=== PATIENT | male | born 1975 | race Two or more races ===

== ENCOUNTER 2021-01-03 20:47 | Observation (INO) | payer SELFPAY ==
[~2021-01-03] VITALS: Ht 167.6 cm; Wt 86.3 kg
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
[2021-01-04] MEDS ORDERED: ONDANSETRON PF 4 MG/2 ML VIAL. IVP ONE (05:00)
[2021-01-04] MEDS ORDERED: KETOROLAC 15 MG/ML VIAL. IVP ONE (05:00)
[2021-01-04] MEDS ORDERED: IV NORMAL SALINE 1000ML BAG 1,000 ML IV ONE ×2 (05:00→07:15)
[2021-01-04 06:20] LABS: BASO % 0 % (0-3); EOS % 0 % (0-3); HEMOGLOBIN 15.4 g/dL (13.0-17.5); LYMPH % 9 % (24-48); MEAN CORPUSCULAR HEMOGLOBIN 31 pg (25-35); MEAN CORPUSCULAR HGB CONC 35 g/dL (31-37); MEAN CORPUSCULAR VOLUME 89 fL (79-100); MONO # 1.3 x10^3/uL (0.0-1.1); MONO % 12 % (0-9); NEUT # 9.1 x10^3/uL (1.8-7.7); NEUT % 80 % (31-73); PLATELET COUNT 148 x10^3/uL (140-400); RED BLOOD COUNT 4.94 x10^6/uL (4.30-5.70); RED CELL DISTRIBUTION WIDTH 13.9 % (11.5-14.5); WHITE BLOOD COUNT 11.5 x10^3/uL (4.0-11.0)
[2021-01-04 06:26] LABS: CLARITY,URINE CLEAR; COLOR,URINE ORANGE; PH,URINE 5.5 (<5.0-8.0); PROTEIN,URINE 100 mg/dL (NEG-TRACE)
[2021-01-04 06:35] LABS: CALCIUM 9.2 mg/dL (8.5-10.1); CREATININE 1.5 mg/dL (0.7-1.3); GFR 50.6; POTASSIUM 3.4 mmol/L (3.5-5.1)
[2021-01-04 06:36] LABS: ACETAMIN < 2 mcg/ml (10-30); ETHANOL < 10 mg/dL (0-10); HYALINE CASTS, URINE MANY /HPF; SALIC < 2.8 mg/dL (2.8-20.0)
[2021-01-04 06:38] LABS: BACTERIA,URINE FEW /HPF (0-FEW)
[2021-01-04 06:45] LABS: BARBITURATES NEG (NEG); BENZODIAZEPINES NEG (NEG); CANNABINOIDS NEG (NEG); COCAINE NEG (NEG); METHADONE NEG (NEG); OPIATES NEG (NEG); PHENCYCLIDINE NEG (NEG)
[2021-01-04 06:46] LABS: AMPHETAMINE/METHAMPHETAMINE NEG (NEG)
--- NOTE | 2021-01-04 06:52 | EKG ---
[facility] [address] [place] [address] Test Date: 2021-01-04 Test Time: 06:21:25 Pat Name: EMANI MALONE Department: Room: Gender: M Computer Hardware Engineer: : 1975 Requested By: RAFY JOAQUIN Order Number: [id number] Reading MD: Measurements Intervals [place] Rate: 109 P: 249 CA: 126 QRS: 37 QRSD: 86 T: 43 QT: 354 QTc: 478 Interpretive Statements SINUS TACHYCARDIA OTHERWISE NORMAL ECG RI6.02 No previous ECG available for comparison
[2021-01-04 07:00] LABS: ALBUMIN 4.3 g/dL (3.4-5.0); ALBUMIN/GLOBULIN RATIO 1.2 (1.0-1.7); TOTAL PROTEIN 7.9 g/dL (6.4-8.2)
[2021-01-04] MEDS ORDERED: IOHEXOL 300 MG/ML 100ML VIAL. IV ONE (07:00)
[2021-01-04] MEDS ORDERED: CONTRAST GIVEN. MC PRN (07:00)
--- NOTE | 2021-01-04 07:32 | RAD ---
EXAM: CT ABDOMEN/PELVIS WITH CONTRAST. HISTORY: Abdominal pain. TECHNIQUE: Computed tomography of the abdomen and pelvis was performed after the intravenous administ ration of iodinated contrast. One or more of the following individualized dose reduction techniques w ere utilized for this examination: 1. Automated exposure control. 2. Adjustment of the mA and/or kV according to patient size. 3. Use of iterative reconstruction technique. COMPARISON: None. FINDINGS: Lung windows through the visualized portions of the bases reveal respiratory motion artifac t. There is wall thickening of the distal esophagus which contains fluid. Bone windows reveal no susp icious lesions. There are scattered benign bone islands in the pelvis. Hypoattenuation of the hepatic parenchyma indicates severe diffuse hepatic steatosis. Respiratory mot ion artifact limits sensitivity for small lesions in the upper abdomen. None are seen. The gallbladde r, pancreas, adrenal glands, spleen and kidneys are otherwise unremarkable. There are no pathologically enlarged lymph nodes. The right and transverse colon are decompressed but there is suggestion of wall thickening. There is no small bowel obstruction. The appendix is not inf lamed. IMPRESSION: 1. Severe diffuse hepatic steatosis. 2. Wall thickening of the distal esophagus suggests esophagitis. Electronically signed by: Karyn Rizo MD (01/04/2021 7:30 AM) [facility]
[2021-01-04] MEDS ORDERED: ONDANSETRON PF 4 MG/2 ML VIAL. IV PRN (07:45)
[2021-01-04] MEDS: IV NORMAL SALINE 1000ML BAG 1,000 ML IV SCH (13:15)
--- NOTE | 2021-01-04 14:16 | HP ---
ADMIT DATE: 01/04/2021 CHIEF COMPLAINT: Abdominal pain. HISTORY OF PRESENT ILLNESS: The patient is a pleasant 45-year-old male who uses cocaine, he states he last used about a week ago. He presents to the ER today with abdominal pain. States he has had some vomiting and diarrhea. He took some [id number] Tylenol but that did not help enough. States he also has some chronic back pain, so uses cocaine for that. While in the ER, we have noticed that his myoglobin was elevated to 948. He has rhabdomyolysis. He also has some electrolyte disturbances with sodium of 128 and potassium of 3.4. I discussed the case with ER physician. We are going to admit the patient. PAST MEDICAL HISTORY: Cocaine abuse, probable psychiatric issues? ALLERGIES: None. FAMILY HISTORY: Hypertension. SOCIAL HISTORY: He uses cocaine. MEDICATIONS: Reviewed, please refer to the MRAD. REVIEW OF SYSTEMS: GENERAL: No history of weight change, weakness or fevers. SKIN: No bruising, hair changes or rashes. EYES: No blurred, double or loss of vision. NOSE AND THROAT: No history of nosebleeds, hoarseness or sore throat. HEART: No history of palpitations, chest pain or shortness of breath on exertion. LUNGS: Denies cough, hemoptysis, wheezing or shortness of breath. GASTROINTESTINAL: Denies changes in appetite, nausea, or constipation. GENITOURINARY: No history of frequency, urgency, hesitancy or nocturia. NEUROLOGIC: Denies history of numbness, tingling, tremor or weakness. PSYCHIATRIC: No history of panic, anxiety or depression. ENDOCRINE: No history of heat or cold intolerance, polyuria or polydipsia. EXTREMITIES: Denies muscle weakness, joint pain, pain on walking or stiffness. PHYSICAL EXAMINATION: VITALS: Within normal limits and are stable. GENERAL: No apparent distress. Alert and oriented. HENT: Normal cephalic, atraumatic. External auditory canals are patent. EYES: Extraocular muscles are intact. Pupils are equally round and reactive to light and accommodation MUSCULOSKELETAL: Well developed, well nourished, good range of motion. ENDOCRINE: No thyromegaly was palpated. LYMPHATICS: No cervical chain or axillary nodes were noted. HEMATOPOIETIC: No bruising. NECK: Supple, no JVD, no thyromegaly was noted. LUNGS: Clear to auscultation in all lung arnold without rhonchi or wheezing. HEART: RRR, S1, S2 present. Peripheral pulses intact. No obvious murmurs were noted. ABDOMEN: Soft, nontender. Positive bowel sounds. No organomegaly. Normal bowel sounds. EXTREMITIES: Without any cyanosis, clubbing, or edema. Pedal pulses intact. Homans sign is negative. NEUROLOGIC: Normal speech, normal tone. A and O x 3, moves all extremities, no obvious focal deficits. PSYCHIATRIC: Normal affect, normal mood. Stable. SKIN: No ulcerations or rashes, good skin turgor, no jaundice. VASCULAR: Good capillary refill, neurovascular bundle appears to be intact. LABORATORY AND DIAGNOSTIC DATA: CT of the abdomen shows hepatic steatosis and wall thickening of the distal esophagus suggestive of esophagitis. Sodium is 128, potassium 3.4, chloride 85, bicarb 30, BUN 22, creatinine 1.5, glucose 97, AST and ALT are high at 187 and 76 respectively. Myoglobin 948. Troponin is 0. Drug screen negative. Urinalysis negative. ASSESSMENT AND PLAN: Rhabdomyolysis with electrolyte disturbance in a middle-aged male who uses cocaine and probable psychiatric issues. The patient has been admitted. We will give him IV fluids, trend his labs. Home meds. DVT prophylaxis. Full code. Consult social media sr strategy manager for drug rehab. PRN Zofran. PRN Ativan. JUAN/MILO DR: Page TID: [phone]
[2021-01-04 15:00] VITALS: BP 161/95
[2021-01-04 19:00] VITALS: BP 177/99
[2021-01-04] MEDS ORDERED: diphenhydrAMINE HCL 25 MG CAPSULE PO PRN (20:45)
[2021-01-04] MEDS ORDERED: ZOLPIDEM 5 MG TABLET. PO PRN (20:45)
[2021-01-04] MEDS ORDERED: ACETAMINOPHEN 325 MG TABLET. PO PRN (20:45)
[2021-01-04] MEDS ORDERED: DOCUSATE SODIUM 100 MG CAPSULE. PO PRN (20:45)
[2021-01-04 23:00] VITALS: BP 115/74
[2021-01-05] MEDS: IV NORMAL SALINE 1000ML BAG 1,000 ML IV SCH (02:18)
[2021-01-05 03:00] VITALS: BP 109/70
[2021-01-05 04:52] LABS: BASO % 1 % (0-3); EOS % 0 % (0-3); HEMATOCRIT 38.1 % (39.0-53.0); LYMPH # 1.6 x10^3/uL (1.0-4.8); LYMPH % 28 % (24-48); MEAN CORPUSCULAR HEMOGLOBIN 32 pg (25-35); MEAN CORPUSCULAR HGB CONC 34 g/dL (31-37); MEAN CORPUSCULAR VOLUME 92 fL (79-100); MONO # 0.6 x10^3/uL (0.0-1.1); MONO % 11 % (0-9); NEUT # 3.4 x10^3/uL (1.8-7.7); NEUT % 61 % (31-73); PLATELET COUNT 85 x10^3/uL (140-400); RED BLOOD COUNT 4.14 x10^6/uL (4.30-5.70); RED CELL DISTRIBUTION WIDTH 14.2 % (11.5-14.5); WHITE BLOOD COUNT 5.7 x10^3/uL (4.0-11.0)
[2021-01-05 05:04] LABS: CALCIUM 8.1 mg/dL (8.5-10.1); CREATININE 0.9 mg/dL (0.7-1.3); GFR 91.3; TOTAL BILIRUBIN 1.6 mg/dL (0.2-1.0); TOTAL PROTEIN 6.1 g/dL (6.4-8.2)
[2021-01-05 05:13] LABS: POTASSIUM 2.9 mmol/L (3.5-5.1)
[2021-01-05] MEDS ORDERED: POTASSIUM CHLORIDE 20 MEQ TABLET.ER. PO ONE ×2 (06:00→12:00)
[2021-01-05 07:00] VITALS: BP 133/79
[2021-01-05] MEDS ORDERED: AMLO-186 PO (09:55)
[2021-01-05] MEDS ORDERED: POTA10TA12 PO (09:55)
--- NOTE | 2021-01-05 09:59 | PDOC3 ---
Discharge Summary Visit Information Date of Admission: Jan 04, 2021 Date of Discharge: Jan 05, 2021 Final Diagnosis acute renal failure, vasomotor nephropathy mild Rhabdomyolysis hypokalemia dehydration htn cocaine abuse disorder Problems Medical Problems: (1) History of cocaine abuse Status: Acute (2) Hyponatremia Status: Acute (3) Rhabdomyolysis Status: Acute Brief Hospital Course Allergies Allergies Coded Allergies Type Severity Reaction Last Updated Verified No Known Drug Allergies 01/04/21 No Vital Signs Vital Signs Date Time Temp Pulse Resp B/P (MAP) Pulse Ox O2 Delivery O2 Flow Rate FiO2 01/05/21 03:00 99.3 103 20 109/70 (83) 99 Room Air 99.3 Lab Results Laboratory Tests Test 01/04/21 06:00 01/04/21 15:40 01/05/21 04:00 White Blood Count 11.5 x10^3/uL (4.0-11.0) 5.7 x10^3/uL (4.0-11.0) Red Blood Count 4.94 x10^6/uL (4.30-5.70) 4.14 x10^6/uL (4.30-5.70) Hemoglobin 15.4 g/dL (13.0-17.5) 13.0 g/dL (13.0-17.5) Hematocrit 44.0 % (39.0-53.0) 38.1 % (39.0-53.0) Mean Corpuscular Volume 89 fL (79-100) 92 fL (79-100) Mean Corpuscular Hemoglobin 31 pg (25-35) 32 pg (25-35) Mean Corpuscular Hemoglobin Concent 35 g/dL (31-37) 34 g/dL (31-37) Red Cell Distribution Width 13.9 % (11.5-14.5) 14.2 % (11.5-14.5) Platelet Count 148 x10^3/uL (140-400) 85 x10^3/uL (140-400) Neutrophils (%) (Auto) 80 % (31-73) 61 % (31-73) Lymphocytes (%) (Auto) 9 % (24-48) 28 % (24-48) Monocytes (%) (Auto) 12 % (0-9) 11 % (0-9) Eosinophils (%) (Auto) 0 % (0-3) 0 % (0-3) Basophils (%) (Auto) 0 % (0-3) 1 % (0-3) Neutrophils # (Auto) 9.1 x10^3/uL (1.8-7.7) 3.4 x10^3/uL (1.8-7.7) Lymphocytes # (Auto) 1.0 x10^3/uL (1.0-4.8) 1.6 x10^3/uL (1.0-4.8) Monocytes # (Auto) 1.3 x10^3/uL (0.0-1.1) 0.6 x10^3/uL (0.0-1.1) Eosinophils # (Auto) 0.0 x10^3/uL (0.0-0.7) 0.0 x10^3/uL (0.0-0.7) Basophils # (Auto) 0.0 x10^3/uL (0.0-0.2) 0.0 x10^3/uL (0.0-0.2) Urine Collection Type U cath Urine Color [place] Urine Clarity Clear Urine pH 5.5 (<5.0-8.0) Urine Specific [place] >=1.030 (1.000-1.030) Urine Protein 100 mg/dL (NEG-TRACE) Urine Glucose (UA) Negative mg/dL (NEG) Urine Ketones (Stick) 40 mg/dL (NEG) Urine Blood Negative (NEG) Urine Nitrite (NEG) Urine Bilirubin (NEG) Urine Urobilinogen Dipstick mg/dL (0.2 mg/dL) Urine Leukocyte Esterase (NEG) Urine RBC 1-2 /HPF (0-2) Urine WBC 1-4 /HPF (0-4) Urine Squamous Epithelial Cells Few /LPF Urine Renal Epithelial Cells Mod /LPF Urine Bacteria Few /HPF (0-FEW) Urine Hyaline Casts Many /HPF Urine Mucus Marked /LPF Sodium Level 128 mmol/L (136-145) 134 mmol/L (136-145) Potassium Level 3.4 mmol/L (3.5-5.1) 2.9 mmol/L (3.5-5.1) Chloride Level 85 mmol/L (98-107) 98 mmol/L (98-107) Carbon Dioxide Level 30 mmol/L (21-32) 33 mmol/L (21-32) Anion Gap 13 (6-14) 3 (6-14) Blood Urea Nitrogen 22 mg/dL (8-26) 18 mg/dL (8-26) Creatinine 1.5 mg/dL (0.7-1.3) 0.9 mg/dL (0.7-1.3) Estimated GFR (Cockcroft-Gault) 50.6 91.3 BUN/Creatinine Ratio 15 (6-20) 20 (6-20) Glucose Level 97 mg/dL (70-99) 92 mg/dL (70-99) Lactic Acid Level 1.6 mmol/L (0.4-2.0) Calcium Level 9.2 mg/dL (8.5-10.1) 8.1 mg/dL (8.5-10.1) Total Bilirubin 3.0 mg/dL (0.2-1.0) 1.6 mg/dL (0.2-1.0) Aspartate Amino Transf (AST/SGOT) 187 U/L (15-37) 116 U/L (15-37) Alanine Aminotransferase (ALT/SGPT) 76 U/L (16-63) 59 U/L (16-63) Alkaline Phosphatase 88 U/L (46-116) 69 U/L (46-116) Myoglobin 948 ng/mL (16-96) Troponin I Quantitative < 0.017 ng/mL (0.000-0.055) Total Protein 7.9 g/dL (6.4-8.2) 6.1 g/dL (6.4-8.2) Albumin 4.3 g/dL (3.4-5.0) 3.0 g/dL (3.4-5.0) Albumin/Globulin Ratio 1.2 (1.0-1.7) 1.0 (1.0-1.7) Lipase 221 U/L (73-393) Salicylates Level < 2.8 mg/dL (2.8-20.0) Salicylate Last Dose Date Unknown Salicylate Last Dose Time Unknown Urine Opiates Screen Neg (NEG) Urine Methadone Screen Neg (NEG) Acetaminophen Level < 2 mcg/ml (10-30) Acetaminophen Last Dose Date Unknown Acetaminophen Last Dose Time Unknown Urine Barbiturates Neg (NEG) Urine Phencyclidine Screen Neg (NEG) Urine Amphetamine/Methamphetamine Neg (NEG) Urine Benzodiazepines Screen Neg (NEG) Urine Cocaine Screen Neg (NEG) Urine Cannabinoids Screen Neg (NEG) Ethyl Alcohol Level < 10 mg/dL (0-10) Urine Ethyl Alcohol Neg (NEG) SARS-CoV-2 RNA (ZULMA) Negative (Negative) SARS-CoV-2 Antigen (Rapid) Negative (NEGATIVE) Laboratory Tests Test 01/04/21 15:40 01/05/21 04:00 SARS-CoV-2 RNA (ZULMA) Negative (Negative) SARS-CoV-2 Antigen (Rapid) Negative (NEGATIVE) White Blood Count 5.7 x10^3/uL (4.0-11.0) Red Blood Count 4.14 x10^6/uL (4.30-5.70) Hemoglobin 13.0 g/dL (13.0-17.5) Hematocrit 38.1 % (39.0-53.0) Mean Corpuscular Volume 92 fL (79-100) Mean Corpuscular Hemoglobin 32 pg (25-35) Mean Corpuscular Hemoglobin Concent 34 g/dL (31-37) Red Cell Distribution Width 14.2 % (11.5-14.5) Platelet Count 85 x10^3/uL (140-400) Neutrophils (%) (Auto) 61 % (31-73) Lymphocytes (%) (Auto) 28 % (24-48) Monocytes (%) (Auto) 11 % (0-9) Eosinophils (%) (Auto) 0 % (0-3) Basophils (%) (Auto) 1 % (0-3) Neutrophils # (Auto) 3.4 x10^3/uL (1.8-7.7) Lymphocytes # (Auto) 1.6 x10^3/uL (1.0-4.8) Monocytes # (Auto) 0.6 x10^3/uL (0.0-1.1) Eosinophils # (Auto) 0.0 x10^3/uL (0.0-0.7) Basophils # (Auto) 0.0 x10^3/uL (0.0-0.2) Sodium Level 134 mmol/L (136-145) Potassium Level 2.9 mmol/L (3.5-5.1) Chloride Level 98 mmol/L (98-107) Carbon Dioxide Level 33 mmol/L (21-32) Anion Gap 3 (6-14) Blood Urea Nitrogen 18 mg/dL (8-26) Creatinine 0.9 mg/dL (0.7-1.3) Estimated GFR (Cockcroft-Gault) 91.3 BUN/Creatinine Ratio 20 (6-20) Glucose Level 92 mg/dL (70-99) Calcium Level 8.1 mg/dL (8.5-10.1) Total Bilirubin 1.6 mg/dL (0.2-1.0) Aspartate Amino Transf (AST/SGOT) 116 U/L (15-37) Alanine Aminotransferase (ALT/SGPT) 59 U/L (16-63) Alkaline Phosphatase 69 U/L (46-116) Total Protein 6.1 g/dL (6.4-8.2) Albumin 3.0 g/dL (3.4-5.0) Albumin/Globulin Ratio 1.0 (1.0-1.7) Brief Hospital Course Mr. Khan is a 45 old admit with acute renal failure, low elevation in myoglobin IV fluid, creatinine improved potassium dropped with IV fluid, 80 meq given, IV mag, script for cont daily potassium PAT team eval for substance abuse before DC. resources Discharge Information Condition at Discharge: Improved Follow Up: Weeks Disposition/Orders: D/C to Home Scheduled Info (No Known Medications Prior To Admisstion) Each, 1 EACH 1-2XD for supplement, (Reported) Entered as Reported by: AWILDA CHRISTIE on 01/04/211407 Last Action: New Order on 01/04/211407 by AWILDA CHRISTIE Potassium Chloride (Potassium Chloride ) 10 Meq Tab.sr.24h, 10 MEQ PO DAILY for SUPPLEMENT, #10 Prescribed by: JOSÉ LUIS WESTFALL on 01/05/21 0960 Patient Instructions Patient Instructions seen face to face discussed above plan Justicifation of Admission Dx: Justifications for Admission: Justification of Admission Dx: No (obs) JOSÉ LUIS WESTFALL MD Jan 05, 2021 09:59
[2021-01-05] MEDS ORDERED: IV NORMAL SALINE 1000ML BAG 1,000 ML IV ONE (10:00)
[2021-01-05] MEDS ORDERED: MAGNESIUM SULFATE 4GM 100 ML IV ONE (10:00)
[2021-01-05 10:16] VITALS: BP 133/79
--- NOTE | 2021-01-05 11:22 | NUR ---
SW following. Discussed with RN, pt from home with mother, room air, cardiac diet, COVID-19 negative. AMAURY consulted for cocaine use/abuse. Discharge order for home with self care after mag replaced. AISLINN will continue to follow. Addendum: 01/05/21 at 1238 by JAQUAN TAO Gonsalo CHAVIRA) met with pt, pt denies any cocaine use, pt barely drinks. Pt provided with resources.
--- NOTE | 2021-01-05 17:10 | NUR ---
DISCHARGE INSTRUCTIONS GIVEN, QUESTIONS AND CONCERNS ANSWERED, PATIENT VERBALIZED UNDERSTANDING OF DISCHARGE INFORMATION INCLUDING TAKING ALL MEDICATIONS INSTRUCTED AND FOLLOWING UP WITH HIS PRIMARY PROVIDER IN 1-2 WEEKS. ALL PERSONAL BELONGINGSGATHERED BY THE PATIENT AND PLACED IN BAGS FOR DISCHARGE.
--- NOTE | 2021-01-05 17:40 | NUR ---
PATIENT LEAVES THE UNIT PER W/C AND ACCOMPANIED BY THIS NURSE, EMOTIONAL SUPPORT GIVEN.
== END 2021-01-05 17:40 | disposition home or self-care (01) ==
LOC: ER 20:47 → ED HOLD 01-04 07:40 → 5 SOUTH 01-04 09:40
PROVIDERS: ADMIT Internal Medicine; ATTEND Internal Medicine
DX: M62.82 Rhabdomyolysis (principal); R11.2 Nausea with vomiting, unspecified; Z20.822 Contact with and (suspected) exposure to COVID-19; R19.7 Diarrhea, unspecified; F12.90 Cannabis use, unspecified, uncomplicated; F14.90 Cocaine use, unspecified, uncomplicated; K76.0 Fatty (change of) liver, not elsewhere classified; E87.1 Hypo-osmolality and hyponatremia; F14.10 Cocaine abuse, uncomplicated; M54.9 Dorsalgia, unspecified; G89.29 Other chronic pain; I10 Essential (primary) hypertension; N17.0 Acute kidney failure with tubular necrosis; E87.6 Hypokalemia; E86.0 Dehydration; Z82.49 Family history of ischemic heart disease and other diseases of the circulatory system
CPT/HCPCS: 36415; 74177; 80053; 80307; 80329; 81001; 82550; 83605; 83690; 83874; 84484; 85025; 87426; 93005; 96360; 96361; 96365; 96366; 96375; 99285; G0378; G0480; J1885; J2060; J2405; J3475; J7030; U0003; U0005; G0379